=== PATIENT | male | born 1990 | race Caucasian/White ===

== ENCOUNTER 2017-01-22 13:09 | Emergency (ER) | payer SELFPAY ==
[2017-01-22 13:14] VITALS: BP 160/92; PULSE 94; RESP 16; TEMP 97.7; O2SAT 97
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
== END 2017-01-22 15:00 | disposition home or self-care (01) ==
DX: S43.402A Unspecified sprain of left shoulder joint, initial encounter (principal); F17.200 Nicotine dependence, unspecified, uncomplicated; X58.XXXA Exposure to other specified factors, initial encounter; Y92.410 Unspecified street and highway as the place of occurrence of the external cause